=== PATIENT | male | born 1950 | race Caucasian/White ===

== ENCOUNTER → 2017-10-02 | Day surgery (SDC) | payer OTHER ==
[2017-10-01 15:21] LABS: BASOPHILS % 0.5 % (0.0-1.0); EOSINOPHILS # (AUTO) 0.4 (0.0-0.4); EOSINOPHILS % 5.2 % (0.0-6.0); HEMATOCRIT 38.7 % (38.2-49.6); HEMOGLOBIN 12.8 g/dL (14.0-18.0); LYMPHOCYTES # (AUTO) 2.2 (1.0-3.2); LYMPHOCYTES % 28.2 % (18.0-39.1); MEAN CORPUSCULAR HEMOGLOBIN 33.3 pg (28-32); MEAN CORPUSCULAR HGB CONC 33.1 g/dL (31-35); MEAN CORPUSCULAR VOLUME 100.8 fL (81-99); MONOCYTES # (AUTO) 0.8 (0.2-0.8); MONOCYTES % 10.7 % (4.4-11.3); NEUTROPHILS # (AUTO) 4.2 (2.1-6.9); NEUTROPHILS % 55.1 % (38.7-80.0); PLATELET COUNT 204 x10e3/uL (140-360); RED BLOOD COUNT 3.84 x10e6/uL (4.3-5.7)
[2017-10-01 15:38] LABS: ANION GAP 10.8 mmol/L (8-16); BLOOD UREA NITROGEN 19 mg/dL (7-26); BUN/CREATININE RATIO 19 (6-25); CALCIUM 9.2 mg/dL (8.4-10.2); CARBON DIOXIDE 28 mmol/L (22-29); CHLORIDE 104 mmol/L (98-107); CREATININE, SERUM 1.01 mg/dL (0.72-1.25); EST GLOMERULAR FILTRATION RATE > 60 ML/MIN (60-); GLUCOSE 82 mg/dL (74-118); POTASSIUM 3.8 mmol/L (3.5-5.1); SODIUM 139 mmol/L (136-145)
--- NOTE | 2017-10-01 15:51 | Diagnostic Imaging Report ---
PROCEDURE: X-RAY CHEST, TWO VIEWS COMPARISON: None. INDICATIONS: PRE-OP FOR REMOVAL OF HERNIA FINDINGS: LUNGS: The lungs are diffusely hyperinflated. Nipple shadows are identified on each side of the chest. No consolidation. Pulmonary vascular markings are normal. PLEURA: No effusions or pneumothorax. HEART \T\ MEDIASTINUM: The heart is normal in size. No hilar lymphadenopathy. BONES \T\ SOFT TISSUES: Diffusely demineralized with mild degenerative changes. No focal osseous lesions. CONCLUSION: Pulmonary hyperinflation suggestive of COPD. No acute cardiopulmonary process. Dictated by: Judith Johnson M.D. on 10/01/2017 at 15:59 Electronically approved by: Judith Johnson M.D. on 10/01/2017 at 15:59
[~2017-10-02] MED LIST: BACITRACIN 50,000 UNIT VIAL ONE; BREO INH; BUPIVACAINE 0.25% 30ML SDV INJ ONE; CEFAZOLIN SOD 1 GM VIAL ONE; CLONAZEPAM0.5 MG PO; DEXAMETHASONE SOD PHOS INJ 4 MG/ML VIAL ONE; FENTANYL CITRATE/PF 100MCG/2 ML INJ ONE; LIDOCAINE HCL 2% LOCAL INJ 5 ML SDV VIAL INJ ONE; LORATADINE10 MG PO; MELOXICAM15 MG PO; MIDAZOLAM HCL 2 MG/2 ML VIAL ONE; ONDANSETRON HCL INJ 2 MG/ML VIAL ONE; PANTOPRAZOLE SO40 MG PO; PAXIL10 MG PO; PROPOFOL IV EMULSION 10 MG/ML 20 ML VIAL ONE; SEVOFLURANE INHAL SOLN 250 ML PEN BTL ONE; SYMBICORT 16010.2 GM INH; TAMSULOSIN HCL0.4 MG PO; TIZANIDINE HCL2 M1 PO; ULTRAM50 MG PO; VIAGRA100 MG PO
--- NOTE | 2017-10-02 14:56 | Operative Report ---
DATE OF PROCEDURE: October 02, 2017 PREOPERATIVE DIAGNOSIS: Incarcerated ventral hernia. POSTOPERATIVE DIAGNOSIS: Incarcerated ventral hernia. OPERATION PERFORMED: Repair of incarcerated ventral hernia with mesh and omentectomy. SOIL CONSERVATION TECHNICIAN: NANCI Orellana ANESTHESIA: General. COMPLICATIONS: None. ESTIMATED BLOOD LOSS: Minimal. DESCRIPTION OF PROCEDURE: With the patient lying in bed in the supine position under good general endotracheal anesthesia, the abdomen was prepped with Betadine solution and draped in the usual manner. A midline incision was made over the palpable bulge in the epigastric and supraumbilical area, carried down through the subcutaneous tissue and immediately, a large hernia sac was encountered which was then slowly and carefully from all of the surrounding structures and the hernia sac was dissected all the way around. The fascial defect was about an inch above the umbilicus. The hernia sac was then opened and incarcerated within the sac with a large amount of omentum, which encompassed basically the entire omentum for the patient. This was ligated with 2-0 Vicryl and divided and sent for pathological examination along with the excess of the hernia sac. After this was done, all of the adhesions were taken down and the intra-abdominal plane was freed up. A medium size Ventralex patch was then placed through the hernia defect and deployed without any problems and then anchored with interrupted sutures of 0 Ethibond and the defect was then closed transversely using interrupted sutures of 0 Ethibond. This gave us a satisfactory defect without any tension. The whole area was thoroughly irrigated. Perfect hemostasis was ascertained, and all layers were infiltrated on the way out with solution of 0.25% Marcaine. Subcutaneous tissue was approximated with 2-0 chromic and the skin was closed with clips. A dressing was applied. The sponge, lap, and needle count was correct. The patient tolerated the procedure well and returned to the recovery room in stable condition. Job#: [id number]
== END | disposition home or self-care (01) ==
LOC: OR 10:08
PROVIDERS: ATTEND Surgery
DX: K43.6 Other and unspecified ventral hernia with obstruction, without gangrene (principal); I10 Essential (primary) hypertension; G47.33 Obstructive sleep apnea (adult) (pediatric); J44.9 Chronic obstructive pulmonary disease, unspecified; K21.9 Gastro-esophageal reflux disease without esophagitis; N40.0 Benign prostatic hyperplasia without lower urinary tract symptoms; F41.9 Anxiety disorder, unspecified; F32.9 Major depressive disorder, single episode, unspecified; F17.200 Nicotine dependence, unspecified, uncomplicated; Z01.810 Encounter for preprocedural cardiovascular examination; Z01.812 Encounter for preprocedural laboratory examination; Z01.818 Encounter for other preprocedural examination
CPT/HCPCS: 36415; 49561; 49568; 71046; 80048; 85025; 88302; 93005; C1781; J0690; J1100; J2001; J2250; J2405